=== PATIENT | male | born 1970 | race Caucasian/White ===

== ENCOUNTER 2018-03-03 18:56 | Emergency (ER) | payer BC, OTHER ==
--- NOTE | 2018-03-03 19:29 | EDPHY ---
H & P Time Seen by Provider: 03/03/18 19:21 HPI/ROS: CHIEF COMPLAINT: Left pretibial laceration HISTORY OF PRESENT ILLNESS: 48-year-old male with up-to-date tetanus arrives via private vehicle complaining of acute left pretibial laceration. He was belaying his climbing partner, when his partner fell, his left pretibial area impacted a rock and dirt. He was able to self ambulate , did not necessitate rescue. No paresthesia. No sensory motor deficit. PHYSICAL EXAM (Prior to examination, patient consented to physical exam, hands were washed and my usual and customary physical exam procedures followed) 1) GENERAL: Well-developed, well-nourished, alert and oriented. Appears to be in no acute distress. 2) HEAD: Normocephalic 3) HEENT: Pupils equal, round, reactive to light bilaterally. 4) LUNGS: Breathing comfortably. 5) MUSCULOSKELETAL: Dorsiflexion plantar flexion supination pronation of the foot intact with no deficits both actively and passively. proximal tibia and fibula nontender .5th MT nontender negative Blanchard test, compartments soft 6) SKIN: Left pretibial laceration measuring 4 cm with visible dirt and contaminant foreign body 7) VASCULAR: DP,PT pulses and cap refill present and brisk DIFFERENTIAL DIAGNOSIS: in no particular order including but not limited to fracture, sprain, compartment syndrome Smoking Status: Never smoked Constitutional: Initial Vital Signs Temperature (C) 37 C 03/03/18 19:05 Heart Rate 60 03/03/18 19:05 Respiratory Rate 18 03/03/18 19:05 Blood Pressure 173/99 H 03/03/18 19:05 O2 Sat (%) 96 03/03/18 19:05 O2 Delivery Mode Room Air Allergies/Adverse Reactions: No Known Allergies Allergy (Unverified 03/03/18 19:05) Home Medications: Medication Instructions Recorded Cephalexin [Keflex] 500 mg PO TID 5 Days cap 03/03/18 MDM/Departure - MDM Imaging Results: Imaging Impressions Tibia/Fibula X-Ray 03/03/18 19:27 Impression: 1. Apparent radiopaque faint foreign body at the laceration site proximal to mid tibia anteriorly was subsequently removed and bandage applied. 2. No fracture seen. Tibia/Fibula X-Ray 03/03/18 20:02 Impression: 1. Apparent radiopaque faint foreign body at the laceration site proximal to mid tibia anteriorly was subsequently removed and bandage applied. 2. No fracture seen. Images reviewed myself Procedures: Procedure: Laceration repair. I explained the indications, risks and benefits for both laceration repair and anesthetic administration. Verbal consent was obtained from the [patient]. The laceration on the left pretibial region was anesthetized using [0.5% bupivicaine] [with] [epinephrine]. After anesthetic administered the patient was observed for a period of time and had no apparent adverse effects. The wound was cleaned, prepped, draped in normal sterile fashion and explored to its base. No foreign body seen, no foreign bodies palpated. [There were no deep structures involved.] [No tendon injury was identified.] The wound was repaired with [ ]. The wound repair was [simple][complex]. The procedure was performed by [myself]. Patient has been informed that scarring will occur, although efforts have been made to minimize this. ED Course/Re-evaluation: Patient was re-evaluated with serial examinations. Pre and post irrigation x- rays obtained showing no retained foreign body. I think the patient would best be served with delayed primary closure. The indications risks and benefits of this were discussed with the patient. He is agreeable and I believe him to have decision-making capacity. Plan will be return to the ER in 3 days, elevation, prophylactic antibiotics. Care of patient under supervision of secondary supervising physician Dr Kay. - Depart Disposition: Home, Routine, Self-Care Clinical Impression: Right pretibial laceration Condition: Good Instructions: Laceration (ED) Additional Instructions: We have discussed a technique called delayed primary closure where, because of the wound contamination and other variables, the wound is initially cleaned, dressed and he will follow up in 3 days in the emergency department. It is very important that you follow-up. Return to the ER sooner if you develop red streaks going up your leg or any other symptoms that concern you. Prescriptions: Cephalexin [Keflex] 500 mg PO TID 5 Days cap Referrals: Return, to the ER on Thursday [Other] - 03/06/18 9:00 am
[2018-03-03 21:05] VITALS: BP 164/97
== END 2018-03-03 21:04 | disposition home or self-care (01) ==
PROC: 0HQLXZZ Repair Left Lower Leg Skin, External Approach (ICD-10-PCS; principal; 2018-03-03)
DX: S81.811A Laceration without foreign body, right lower leg, initial encounter (principal); W18.09XA Striking against other object with subsequent fall, initial encounter; Y99.8 Other external cause status; Y93.39 Activity, other involving climbing, rappelling and jumping off

== ENCOUNTER 2018-03-06 07:10 | Emergency (ER) | payer BC ==
--- NOTE | 2018-03-06 08:01 | EDPHY ---
H & P Stated Complaint: Returns for recheck L leg lac-- Time Seen by Provider: 03/06/18 07:22 HPI/ROS: CHIEF COMPLAINT: Here for delayed closure of left leg laceration HISTORY OF PRESENT ILLNESS: 48-year-old male presents for delayed closure of left leg laceration. He sustained a laceration on the anterior aspect of his lower leg on of 03/03/2018 during a fall while climbing. He was seen in this emergency department and the wound was cleansed and packed open. He has been on Keflex since then. No fever and minimal pain currently. No drainage. Tetanus is up-to-date. ROS: No numbness, weakness, excessive bleeding, syncopal episode, other injury. - Medical/Surgical History Hx Asthma: No Hx Chronic Respiratory Disease: No Hx Diabetes: No Hx Cardiac Disease: No Hx Renal Disease: No Hx Cirrhosis: No Hx Alcoholism: No Hx HIV/AIDS: No Hx Splenectomy or Spleen Trauma: No Other PMH: DENIES - Social History Smoking Status: Never smoked - Physical Exam Exam: Alert, pleasant Extremities: Left lower leg-4 cm laceration on the anterior aspect of the mid lower leg. The laceration is clean, without debris, erythema, warmth or tenderness. Neuro: Motor and sensory intact Vascular: Capillary refill brisk distally Constitutional: Initial Vital Signs Temperature (C) 36.7 C 03/06/18 07:14 Heart Rate 57 L 03/06/18 07:14 Respiratory Rate 16 03/06/18 07:14 Blood Pressure 162/86 H 03/06/18 07:14 O2 Sat (%) 98 03/06/18 07:14 O2 Delivery Mode Room Air Allergies/Adverse Reactions: No Known Allergies Allergy (Unverified 03/03/18 19:05) Home Medications: Medication Instructions Recorded Cephalexin [Keflex] 500 mg PO TID 5 Days cap 03/03/18 Medical Decision Making Procedures: Procedure: Laceration repair. The 4 cm laceration on the left lower leg was anesthetized using lidocaine. The wound was irrigated, draped and explored to its base with a gloved finger. There were no deep structures involved. No foreign body visible or palpable. The wound was repaired with 5-0 Nylon. The wound repair was simple. ED Course/Re-evaluation: This patient presents for delayed closure of a left lower leg laceration. The wound is clean, without evidence of infection. The wound was sutured by me. Departure - Departure Disposition: Home, Routine, Self-Care Clinical Impression: Laceration Condition: Good Instructions: Care For Your Stitches (ED), Laceration (ED) Additional Instructions: Return for suture removal in 10 days. Referrals: Halley Tucker MD [Medical Doctor] - Follow Up Only If Needed
[2018-03-06 08:30] VITALS: BP 146/97
== END 2018-03-06 08:36 | disposition home or self-care (01) ==
PROC: 0HQLXZZ Repair Left Lower Leg Skin, External Approach (ICD-10-PCS; principal; 2018-03-06)
DX: S81.812D Laceration without foreign body, left lower leg, subsequent encounter (principal); W18.39XD Other fall on same level, subsequent encounter